=== PATIENT | male | born 1925 | race Caucasian/White ===

== ENCOUNTER 2017-03-02 13:52 | Emergency (ER) | payer MEDICARE ==
[~2017-03-02] VITALS: Ht 182.9 cm; Wt 63.5 kg
[2017-03-02 15:03] LABS: BASOPHILS # (AUTO) 0.1 K/uL (0.0-8.0); EOSINOPHILS # (AUTO) 0.2 K/uL (0.0-0.7); EOSINOPHILS % (AUTO) 2.3 % (0.0-7.0); HEMATOCRIT 38.3 % (36.7-47.1); HEMOGLOBIN 12.6 g/dL (12.5-16.3); LYMPHOCYTES # (AUTO) 2.6 K/uL (20.0-40.0); LYMPHOCYTES % (AUTO) 26.4 % (20.5-51.5); MEAN CORPUSCULAR HEMOGLOBIN 32.5 uug (23.8-33.4); MEAN CORPUSCULAR HGB CONC 33 g/dL (32.5-36.3); MEAN CORPUSCULAR VOLUME 99.2 fL (73.0-96.2); MONOCYTES # (AUTO) 0.7 K/uL (2.0-10.0); MONOCYTES % (AUTO) 7.2 % (0.0-11.0); NEUTROPHILS # (AUTO) 6.3 K/uL (1.8-8.9); NEUTROPHILS % (AUTO) 63.1 % (38.5-71.5); PLATELET COUNT (AUTO) 258 K/uL (152-348); RED BLOOD CELL COUNT(AUTO) 3.86 MIL/uL (4.06-5.63); WHITE BLOOD COUNT (AUTO) 9.9 K/uL (3.6-10.2)
[2017-03-02 15:17] LABS: ALANINE AMINOTRANSFERASE 28 U/L (16-63); ALKALINE PHOSPHATASE 72 U/L (50-136); ASPARTATE AMINOTRANSFERASE 36 U/L (15-37); BILIRUBIN,TOTAL 0.6 mg/dL (0.2-1.0); CARBON DIOXIDE 26 mmol/L (21-32); CHLORIDE 102 mmol/L (98-107); GLUCOSE 106 mg/dL (74-106); TOTAL PROTEIN, SERUM 7.3 g/dL (6.4-8.2); UREA NITROGEN, BLOOD 18 mg/dL (7-18)
[2017-03-02] MEDS ORDERED: POLY17PO4 PO (15:50)
[2017-03-02] MEDS ORDERED: FLUD0.1T PO (15:50)
[2017-03-02] MEDS ORDERED: ATOR10TA PO (15:50)
[2017-03-02] MEDS ORDERED: MOME15OI2 TP (15:50)
[2017-03-02] MEDS ORDERED: ASPI-612 PO (15:50)
[2017-03-02] MEDS ORDERED: DONE10TA44 PO (15:50)
[2017-03-02] MEDS ORDERED: HYDR-3326 PO (15:50)
[2017-03-02] MEDS ORDERED: MIDO10TA PO (15:50)
[2017-03-02] MEDS ORDERED: CALC-1029 PO (15:50)
[2017-03-02] MEDS ORDERED: SERT100T12 PO (15:50)
--- NOTE | 2017-03-02 18:35 | NUR ---
MSE COMPLETED, PT D/C'D HOME, PT TAKEN HOME BY SON.
[2017-03-02 18:36] VITALS: BP 102/63
== END 2017-03-02 18:37 | disposition home or self-care (01) ==
LOC: ER 13:55 → EDBD 13:55 → ER 18:37
DX: M79.671 Pain in right foot (principal); M81.0 Age-related osteoporosis without current pathological fracture; Z88.0 Allergy status to penicillin; Z79.82 Long term (current) use of aspirin
CPT/HCPCS: 36415; 73600; 73620; 80053; 85025; 99285; A4663

== ENCOUNTER 2017-05-14 16:04 | Emergency (ER) | payer MEDICARE, BC ==
[~2017-05-14] VITALS: Ht 170.2 cm; Wt 70.3 kg
[~2017-05-14 16:04] MED LIST: ASPI-612 PO; ATOR10TA PO; CALC-1029 PO; DONE10TA44 PO; FLUD0.1T PO; HYDR-3326 PO; MIDO10TA PO; MOME15OI2 TP; POLY17PO4 PO; SERT100T12 PO
[2017-05-14 16:27] LABS: BASOPHILS # (AUTO) 0.1 K/uL (0.0-8.0); BASOPHILS % (AUTO) 1.4 % (0.0-2.0); EOSINOPHILS # (AUTO) 0.4 K/uL (0.0-0.7); EOSINOPHILS % (AUTO) 4.2 % (0.0-7.0); HEMOGLOBIN 12.1 g/dL (12.5-16.3); LYMPHOCYTES # (AUTO) 3.1 K/uL (20.0-40.0); LYMPHOCYTES % (AUTO) 31.5 % (20.5-51.5); MEAN CORPUSCULAR HEMOGLOBIN 32.5 uug (23.8-33.4); MEAN CORPUSCULAR HGB CONC 34 g/dL (32.5-36.3); MEAN CORPUSCULAR VOLUME 96.5 fL (73.0-96.2); MONOCYTES # (AUTO) 0.9 K/uL (2.0-10.0); MONOCYTES % (AUTO) 8.9 % (0.0-11.0); NEUTROPHILS # (AUTO) 5.3 K/uL (1.8-8.9); PLATELET COUNT (AUTO) 209 K/uL (152-348); RED BLOOD CELL COUNT(AUTO) 3.73 MIL/uL (4.06-5.63); WHITE BLOOD COUNT (AUTO) 9.9 K/uL (3.6-10.2)
[2017-05-14] MEDS ORDERED: MINE120C3 TP (16:31)
[2017-05-14] MEDS ORDERED: MICO25PO2 MC (16:31)
[2017-05-14] MEDS ORDERED: MAGN400O6 PO (16:31)
[2017-05-14] MEDS ORDERED: HYDR-3326 PO (16:31)
[2017-05-14] MEDS ORDERED: DICL1KIT14 TP (16:31)
[2017-05-14] MEDS ORDERED: DONE5TAB34 PO (16:31)
[2017-05-14] MEDS ORDERED: ASPI-605 PO (16:31)
[2017-05-14] MEDS ORDERED: LIDO30AD10 TD (16:31)
[2017-05-14 16:36] LABS: CARBON DIOXIDE 32 mmol/L (21-32); CHLORIDE 103 mmol/L (98-107); CREATININE 1.3 mg/dL (0.6-1.3); GLUCOSE 109 mg/dL (74-106); POTASSIUM 4.2 mmol/L (3.5-5.1); UREA NITROGEN, BLOOD 23 mg/dL (7-18)
--- NOTE | 2017-05-14 16:55 | NUR ---
Patient discharged to home in stable conditon. Written and verbal after care instructions given. Patient verbalizes understanding of instructions.PT WHEELCHAIRED OUT ACCOMPANIED BY . PT DENEIS ANY DIZZINESS,N/V
[2017-05-14 16:56] VITALS: BP 151/88
== END 2017-05-14 16:57 | disposition home or self-care (01) ==
LOC: ER 16:05
DX: S01.81XA Laceration without foreign body of other part of head, initial encounter (principal); I10 Essential (primary) hypertension; Z88.0 Allergy status to penicillin; Z79.891 Long term (current) use of opiate analgesic; Z79.899 Other long term (current) drug therapy; Z79.82 Long term (current) use of aspirin; W18.39XA Other fall on same level, initial encounter; Y93.89 Activity, other specified; Y92.89 Other specified places as the place of occurrence of the external cause; Y99.8 Other external cause status
CPT/HCPCS: 36415; 70030-TC; 70450; 71045; 85025; 93005; A4663

== ENCOUNTER 2017-06-04 11:21 | Emergency (ER) | payer MEDICARE, BC ==
[~2017-06-04] VITALS: Ht 182.9 cm; Wt 77.1 kg
[~2017-06-04 11:21] MED LIST changes: +ASPI-605 PO; -ASPI-612 PO; +DICL1KIT14 TP; -DONE10TA44 PO; +DONE5TAB34 PO; +LIDO30AD10 TD; +MAGN400O6 PO; +MICO25PO2 MC; +MINE120C3 TP; -POLY17PO4 PO
--- NOTE | 2017-06-04 11:46 | NUR ---
DR FORDE AT THE BEDSIDE FOR MSE.
[2017-06-04 12:10] LABS: BASOPHILS # (AUTO) 0.1 K/uL (0.0-8.0); BASOPHILS % (AUTO) 0.9 % (0.0-2.0); EOSINOPHILS # (AUTO) 0.3 K/uL (0.0-0.7); EOSINOPHILS % (AUTO) 2.1 % (0.0-7.0); HEMATOCRIT 36.5 % (36.7-47.1); HEMOGLOBIN 12.2 g/dL (12.5-16.3); LYMPHOCYTES # (AUTO) 1.5 K/uL (20.0-40.0); LYMPHOCYTES % (AUTO) 11.9 % (20.5-51.5); MEAN CORPUSCULAR HGB CONC 33 g/dL (32.5-36.3); MEAN CORPUSCULAR VOLUME 95.8 fL (73.0-96.2); MONOCYTES % (AUTO) 7.6 % (0.0-11.0); NEUTROPHILS # (AUTO) 9.9 K/uL (1.8-8.9); NEUTROPHILS % (AUTO) 77.5 % (38.5-71.5); PLATELET COUNT (AUTO) 221 K/uL (152-348); RED BLOOD CELL COUNT(AUTO) 3.81 MIL/uL (4.06-5.63); WHITE BLOOD COUNT (AUTO) 12.8 K/uL (3.6-10.2)
[2017-06-04 12:22] LABS: CARBON DIOXIDE 31 mmol/L (21-32); CHLORIDE 102 mmol/L (98-107); CREATININE 1.3 mg/dL (0.6-1.3); GLUCOSE 102 mg/dL (74-106); POTASSIUM 4.1 mmol/L (3.5-5.1); UREA NITROGEN, BLOOD 21 mg/dL (7-18)
[2017-06-04 12:28] LABS: ALANINE AMINOTRANSFERASE 29 U/L (16-63); ALKALINE PHOSPHATASE 65 U/L (50-136); ASPARTATE AMINOTRANSFERASE 22 U/L (15-37); BILIRUBIN,DIRECT 0.1 mg/dL (0.0-0.2); BILIRUBIN,TOTAL 0.6 mg/dL (0.2-1.0); TOTAL PROTEIN, SERUM 7.1 g/dL (6.4-8.2)
--- NOTE | 2017-06-04 12:30 | NUR ---
PT OUT OF ER FOR CT.
--- NOTE | 2017-06-04 12:55 | NUR ---
PT BACK FROM CT, C/O LOWER BACK PAIN. AWARE.
[2017-06-04] MEDS ORDERED: ACETAMINOPHEN ES 500 MG TABLET PO ONE (13:00)
[2017-06-04] MEDS ORDERED: ACETAMINOPHEN ES 500 MG TABLET ONE (13:02)
[2017-06-04 13:37] LABS: EOSINOPHILS % (MANUAL) 2 % (0-8); LYMPHOCYTES % (MANUAL) 13 % (20-40); MONOCYTES % (MANUAL) 5 % (2-10); NEUTROPHILS % (MANUAL) 80 % (42-75)
[2017-06-04 13:51] LABS: *BILIRUBIN,URIN NEGATIVE (NEGATIVE); *BLOOD, URINE Trace-intact (NEGATIVE); *CLARITY,URINE CLEAR (CLEAR); *COLOR,URINE YELLOW (YELLOW); *KETONES,URINE NEGATIVE (NEGATIVE); *PROTEIN,URINE NEGATIVE (NEGATIVE); *UROBILINOGEN,URINE 0.2 E.U./dl (NORMAL); LEUKOCYTE ESTERASE ,URINE NEGATIVE (NEGATIVE); NITRITE, URINE NEGATIVE (NEGATIVE); PH,URINE 7.5 (5.0-8.0); UGLUCOSE NEGATIVE (NEGATIVE)
[2017-06-04 14:01] LABS: BACTERIA,URINE NONE SEEN /HPF (NONE SEEN); RBC,URINE 0-3 /HPF (0-3); SQUAMOUS EPITHELIAL CELL,UR NONE SEEN /HPF (NONE SEEN); WBC,URINE NONE SEEN /HPF (0-3)
[2017-06-04 14:47] VITALS: BP 147/69
--- NOTE | 2017-06-04 14:48 | NUR ---
Patient discharged in stable conditon. Written and verbal after care instructions given. Patient verbalizes understanding of instructions. Pt left Er w/ and caregiver.
== END 2017-06-04 14:48 | disposition home or self-care (01) ==
LOC: ER 11:24
DX: S32.059A Unspecified fracture of fifth lumbar vertebra, initial encounter for closed fracture (principal); I10 Essential (primary) hypertension; R51 Headache; Z88.0 Allergy status to penicillin; Z79.82 Long term (current) use of aspirin; Z79.891 Long term (current) use of opiate analgesic; Z79.899 Other long term (current) drug therapy; W01.0XXA Fall on same level from slipping, tripping and stumbling without subsequent striking against object, initial encounter; Y93.89 Activity, other specified; Y92.89 Other specified places as the place of occurrence of the external cause; Y99.8 Other external cause status
CPT/HCPCS: 36415; 70030-TC; 70450; 71045; 72125; 73502; 85025; 85730; 93005; A4663; A9150

== ENCOUNTER 2017-06-12 17:21 | Emergency (ER) | payer MEDICARE, BC ==
[~2017-06-12] VITALS: Ht 182.9 cm; Wt 77.1 kg
[2017-06-12] MEDS ORDERED: LIDOCAINE HCL 2% 20 ML VIAL TP ONE (17:45)
--- NOTE | 2017-06-12 17:45 | NUR ---
pt and son and a personnel from [facility] came to visit the pt.
--- NOTE | 2017-06-12 17:52 | NUR ---
Patient discharged to home in stable conditon. Written and verbal after care instructions given. Patient verbalizes understanding of instructions.the employee will take the pt back to [facility]. called [place] and gave report. [facility] rn approved pt being taken back home by the employee.
[2017-06-12 18:12] VITALS: BP 131/79
== END 2017-06-12 18:16 | disposition home or self-care (01) ==
LOC: ER 17:22
DX: S01.01XA Laceration without foreign body of scalp, initial encounter (principal); I10 Essential (primary) hypertension; Z88.0 Allergy status to penicillin; Z79.891 Long term (current) use of opiate analgesic; Z79.899 Other long term (current) drug therapy; W18.30XA Fall on same level, unspecified, initial encounter; Y93.89 Activity, other specified; Y92.89 Other specified places as the place of occurrence of the external cause; Y99.8 Other external cause status
CPT/HCPCS: A4217; A4663

== ENCOUNTER 2017-06-24 15:39 | Emergency (ER) | payer MEDICARE, BC ==
[~2017-06-24] VITALS: Ht 182.9 cm; Wt 77.1 kg
--- NOTE | 2017-06-24 16:15 | NUR ---
Gonzalez removed by . Patient discharged with caregiver from [facility]. Written and verbal after care instructions given to caregiver.
== END 2017-06-24 16:16 | disposition home or self-care (01) ==
LOC: ER 15:40
DX: S01.01XD Laceration without foreign body of scalp, subsequent encounter (principal); I10 Essential (primary) hypertension; Z48.02 Encounter for removal of sutures; Z88.0 Allergy status to penicillin; Z79.891 Long term (current) use of opiate analgesic; Z79.82 Long term (current) use of aspirin; Z79.899 Other long term (current) drug therapy
CPT/HCPCS: A4663